=== PATIENT | female | born 1970 | race Caucasian/White ===

== ENCOUNTER 2016-12-03 10:42 | Inpatient (IN) | payer OTHER ==
[~2016-12-03] VITALS: Ht 170.2 cm; Wt 92.3 kg
[~2016-12-03 10:42] MED LIST: PENI250T91 PO
[2016-12-03] MEDS ORDERED: SODIUM CHLORIDE 0.9% 1,000 ML IV ONE (10:49)
[2016-12-03] MEDS ORDERED: ONDANSETRON 2MG/ML, 2ML IVPush ONE (11:00)
[2016-12-03] MEDS ORDERED: FAMOTIDINE 20 MG/2 ML IVP ONE (11:00)
[2016-12-03] MEDS ORDERED: SODIUM CHLORIDE FLUSH 10ML SYR IVF ONE (11:00)
[2016-12-03] MEDS ORDERED: MAALOX/HYOSCYAMINE/LIDOCAINE 45 ML BTL PO ONE (11:00)
[2016-12-03] MEDS ORDERED: SODIUM CHLORIDE 0.9% 1,000ML IVBOLUS ONE (11:00)
[2016-12-03] MEDS ORDERED: MAALOX/HYOSCYAMINE/LIDOCAINE 45 ML BTL ONE (11:07)
[2016-12-03] MEDS ORDERED: ONDANSETRON 2MG/ML, 2ML ONE (11:07)
[2016-12-03] MEDS ORDERED: FAMOTIDINE 20 MG/2 ML ONE (11:09)
[2016-12-03 11:24] LABS: HEMATOCRIT 39.5 % (34.6-47.8); HEMOGLOBIN 12.4 g/dL (11.7-16.4); WHITE BLOOD COUNT 20.2 x10^3/uL (3.4-10)
[2016-12-03 11:35] LABS: ASPARTATE AMINO TRANSFERASE 30 U/L (15-37); BLOOD UREA NITROGEN 8 mg/dL (7-18)
[2016-12-03 11:47] LABS: DIFF TOTAL CELLS COUNTED 100 CELL DIFF
[2016-12-03 11:49] LABS: VERIFY COUNTS? YES
[2016-12-03 11:50] LABS: HYPOCHROMIA 1+; MICROCYTOSIS 1+; OVALOCYTES 1+
[2016-12-03] MEDS ORDERED: OMEP-110 PO (12:15)
[2016-12-03] MEDS ORDERED: LEVOFLOXACIN/PMX 750MG/150ML 0 ML ONE (12:17)
[2016-12-03] MEDS ORDERED: LEVOFLOXACIN/PMX 500MG/100ML 100 ML ONE (12:20)
[2016-12-03] MEDS ORDERED: LEVOFLOXACIN/PMX 500MG/100ML 100 ML IVPB ONE (12:30)
[2016-12-03 12:46] LABS: CARE PROVIDER REQUESTING TEST N
[2016-12-03] MEDS ORDERED: MAALOX/HYOSCYAMINE/LIDOCAINE 45 ML BTL PO PRN (17:00)
[2016-12-03] MEDS ORDERED: DOCUSATE 100 MG CAPSULE PO PRN (17:00)
[2016-12-03] MEDS ORDERED: HYDROcodone/APAP 5/325 TABLET PO PRN (17:00)
[2016-12-03] MEDS ORDERED: POLYETHYLENE GLYCOL 17 GM PACKET PO PRN (17:00)
[2016-12-03] MEDS ORDERED: LABETALOL 5MG/ML, 20ML IVPush PRN (17:00)
[2016-12-03] MEDS ORDERED: ENALAPRILAT 1.25 MG/ML, 2ML IVPush PRN (17:00)
[2016-12-03] MEDS ORDERED: morphine SULFATE 10 MG/ML, 1ML IVPush PRN (17:00)
[2016-12-03] MEDS ORDERED: BISACODYL 10 MG SUPP PR PRN (17:00)
[2016-12-03] MEDS ORDERED: OMNIPAQUE 350 MG/ML, 100ML BOTTLE ONE (17:55)
[2016-12-03] MEDS: SODIUM CHLORIDE 0.9% 1,000 ML IV SCH (18:20)
[2016-12-03] MEDS: METRONIDAZOLE PMX 500MG/100ML 100 ML IV SCH (18:20)
[2016-12-03 18:51] VITALS: BP 107/72
[2016-12-03] MEDS: CEFTRIAXONE PMX 1GM/50ML 50 ML IV SCH (20:22)
[2016-12-03] MEDS: SUCRALFATE 1 GM/10 ML UDC PO SCH (20:22)
[2016-12-03] MEDS: FAMOTIDINE 20 MG/2 ML IVPush SCH (20:22)
[2016-12-03] MEDS: ENOXAPARIN 40 MG/0.4 ML SQ SCH (20:22)
[2016-12-03] MEDS ORDERED: DIPHENHYDRAMINE 25 MG CAPSULE PO PRN (22:30)
[2016-12-03] MEDS: ONDANSETRON 2MG/ML, 2ML IVPush PRN (23:25)
[2016-12-03] MEDS: HYDROcodone/APAP 5/325 TABLET PO PRN (23:25)
[2016-12-04 01:29] VITALS: BP 100/66
[2016-12-04] MEDS: SODIUM CHLORIDE 0.9% 1,000 ML IV SCH ×3 (02:04→19:58)
[2016-12-04] MEDS: SUCRALFATE 1 GM/10 ML UDC PO SCH ×4 (02:04→19:57)
[2016-12-04] MEDS: METRONIDAZOLE PMX 500MG/100ML 100 ML IV SCH ×2 (02:05→10:28)
[2016-12-04] MEDS: ONDANSETRON 2MG/ML, 2ML IVPush PRN (05:27)
[2016-12-04] MEDS: ACETAMINOPHEN 325 MG TABLET PO PRN (05:27)
[2016-12-04 06:03] LABS: BLOOD UREA NITROGEN 5 mg/dL (7-18)
[2016-12-04 06:06] LABS: ASPARTATE AMINO TRANSFERASE 11 U/L (15-37)
[2016-12-04 06:08] LABS: HEMATOCRIT 32.2 % (34.6-47.8); HEMOGLOBIN 10.3 g/dL (11.7-16.4); WHITE BLOOD COUNT 10.4 x10^3/uL (3.4-10)
[2016-12-04] MEDS ORDERED: PROMETHAZINE 25 MG/ML, 1ML IM PRN (07:30)
[2016-12-04 07:40] VITALS: BP 118/77
[2016-12-04] MEDS ORDERED: LORazepam 2 MG/ML, 1ML IVPush PRN (09:00)
[2016-12-04] MEDS: FAMOTIDINE 20 MG/2 ML IVPush SCH ×2 (10:28→19:58)
[2016-12-04] MEDS: HYDROcodone/APAP 5/325 TABLET PO PRN (10:28)
[2016-12-04] MEDS ORDERED: LOPERAMIDE 2 MG CAPSULE PO PRN (11:00)
[2016-12-04] MEDS ORDERED: AZITHROMYCIN 500 MG TABLET PO ONE (11:00)
[2016-12-04 15:27] VITALS: BP 96/60
[2016-12-04 18:39] VITALS: BP 114/74
[2016-12-04] MEDS: ENOXAPARIN 40 MG/0.4 ML SQ SCH (19:57)
[2016-12-04] MEDS: CEFTRIAXONE PMX 1GM/50ML 50 ML IV SCH (19:58)
[2016-12-05 01:39] VITALS: BP 103/66
[2016-12-05] MEDS: SUCRALFATE 1 GM/10 ML UDC PO SCH ×3 (02:00→14:00)
[2016-12-05] MEDS: SODIUM CHLORIDE 0.9% 1,000 ML IV SCH (04:44)
[2016-12-05 06:08] LABS: HEMOGLOBIN 9.5 g/dL (11.7-16.4); WHITE BLOOD COUNT 9.4 x10^3/uL (3.4-10)
[2016-12-05 06:33] LABS: ASPARTATE AMINO TRANSFERASE 15 U/L (15-37); BLOOD UREA NITROGEN 2 mg/dL (7-18)
[2016-12-05 07:13] VITALS: BP 106/66
[2016-12-05] MEDS: FAMOTIDINE 20 MG/2 ML IVPush SCH (09:04)
[2016-12-05] MEDS: ACETAMINOPHEN 325 MG TABLET PO PRN (10:51)
== END 2016-12-05 16:20 | disposition home or self-care (01) | DRG 872 ==
LOC: ED 12:03 → EDIP 16:01 → 3NE 17:01
PROVIDERS: ADMIT Family Medicine; ATTEND Family Medicine
DX: A41.9 Sepsis, unspecified organism (principal); N10 Acute pyelonephritis; F32.9 Major depressive disorder, single episode, unspecified; G43.909 Migraine, unspecified, not intractable, without status migrainosus; G89.29 Other chronic pain; K21.9 Gastro-esophageal reflux disease without esophagitis; K29.70 Gastritis, unspecified, without bleeding; K52.9 Noninfective gastroenteritis and colitis, unspecified; K56.41 Fecal impaction; Z80.0 Family history of malignant neoplasm of digestive organs; Z83.3 Family history of diabetes mellitus; Z87.891 Personal history of nicotine dependence
CPT/HCPCS: 36415; 74020; 74177; 80053; 81001; 83605; 83690; 84703; 85025; 87040; 87086; 87324; 87338; 89055; 93005; 96361; 96365; 96375; J0696; J1650; J1956; J2405; J2550; Q9967; J7030; Q0163; S0028

== ENCOUNTER 2017-03-02 08:55 | Emergency (ER) | payer MEDICAID, OTHER ==
[~2017-03-02] VITALS: Ht 170.2 cm; Wt 89.0 kg
[~2017-03-02 08:55] MED LIST changes: +OMEP-110 PO
[2017-03-02] MEDS ORDERED: IBUPROFEN 200 MG TABLET ONE (09:20)
[2017-03-02] MEDS ORDERED: ONDANSETRON ODT 4 MG ONE (09:23)
[2017-03-02] MEDS ORDERED: ONDANSETRON ODT 4 MG PO ONE (09:30)
[2017-03-02] MEDS ORDERED: IBUPROFEN 800 MG TABLET PO SCH (09:30)
[2017-03-02 09:48] VITALS: BP 120/70
[2017-03-02 09:50] LABS: RAPID INFLUENZA A Negative (Negative); RAPID INFLUENZA B Negative (Negative)
[2017-03-02] MEDS ORDERED: PROMETHAZINE 25 MG/ML, 1ML ONE (10:02)
[2017-03-02] MEDS ORDERED: PROMETHAZINE 25 MG/ML, 1ML IM ONE (10:30)
== END 2017-03-02 10:17 | disposition home or self-care (01) ==
LOC: ED 10:00
DX: J20.9 Acute bronchitis, unspecified (principal); K21.9 Gastro-esophageal reflux disease without esophagitis; G43.909 Migraine, unspecified, not intractable, without status migrainosus
CPT/HCPCS: 71020; 87081; 87400; 87880; 96372; 99285; J2550; Q0162

== ENCOUNTER 2017-10-05 18:44 | Emergency (ER) | payer MEDICAID, OTHER ==
[~2017-10-05] VITALS: Ht 170.2 cm; Wt 85.6 kg
[2017-10-05] MEDS ORDERED: SODIUM CHLORIDE 0.9% 1,000ML IVBOLUS ONE (19:00)
[2017-10-05] MEDS ORDERED: PROMETHAZINE 25 MG/ML, 1ML IM ONE (19:00)
[2017-10-05] MEDS ORDERED: PROMETHAZINE 25 MG/ML, 1ML ONE (19:03)
[2017-10-05 19:13] LABS: BASOPHILS % (AUTO) 1 % (0-1); EOSINOPHILS # (AUTO) 0.03 x10^3/uL (0-0.4); EOSINOPHILS % (AUTO) 0 % (1-7); LYMPHOCYTES # (AUTO) 1.48 x10^3/uL (1-3.4); LYMPHOCYTES % (AUTO) 10 % (22-44); MD NO; MEAN CORPUSCULAR HEMOGLOBIN 24.7 pg (27.0-34.8); MEAN CORPUSCULAR HGB CONC 31.9 g/dL (32.4-35.8); MEAN CORPUSCULAR VOLUME 77.5 fL (80-100); MEAN PLATELET VOLUME 10.5 fL (7.4-10.4); MONOCYTES % (AUTO) 3 % (2-9); NEUTROPHILS # (AUTO) 12.94 x10^3/uL (1.8-6.8); NEUTROPHILS % (AUTO) 86 % (42-75); PLATELET COUNT 321 x10^3/uL (130-400); RED BLOOD COUNT 4.83 x10^6/uL (3.82-5.3); RED CELL DISTRIBUTION WIDTH 16.9 % (9.6-15.2)
[2017-10-05 19:20] LABS: ALANINE AMINOTRANSFERASE 24 U/L (12-78); ALBUMIN 4.1 g/dL (3.4-5.0); ANION GAP 12 mmol/L (5-15); CALCIUM 9.1 mg/dL (8.5-10.1); CHLORIDE 103 mmol/L (98-107); CREATININE 0.88 mg/dL (0.55-1.02)
[2017-10-05 19:25] LABS: ALKALINE PHOSPHATASE 85 U/L (45-117); BILIRUBIN,TOTAL 0.4 mg/dL (0.2-1.0); TOTAL PROTEIN 8.1 g/dL (6.4-8.2)
[2017-10-05] MEDS ORDERED: ONDANSETRON ODT 4 MG ONE (20:20)
[2017-10-05] MEDS ORDERED: ONDANSETRON ODT 4 MG PO ONE (20:30)
[2017-10-05 21:17] LABS: MICROSCOPIC INDICATED
[2017-10-05 21:26] LABS: CULTURE INDICATED? NO
[2017-10-05] MEDS ORDERED: METOCLOPRAMIDE 5 MG/ML, 2ML ONE (21:37)
[2017-10-05] MEDS ORDERED: METOCLOPRAMIDE 5 MG/ML, 2ML IVPush ONE (22:00)
[2017-10-05 22:38] VITALS: BP 131/77
== END 2017-10-05 22:49 | disposition home or self-care (01) ==
LOC: ED 21:29
DX: R11.2 Nausea with vomiting, unspecified (principal); G43.909 Migraine, unspecified, not intractable, without status migrainosus; K21.9 Gastro-esophageal reflux disease without esophagitis; Z87.891 Personal history of nicotine dependence
CPT/HCPCS: 36415; 80053; 81001; 83690; 84703; 85025; 96361; 96372; 96374; 99285; J2550; J2765; J7030; Q0162

== ENCOUNTER 2018-11-08 22:26 | Emergency (ER) | payer OTHER ==
[~2018-11-08] VITALS: Ht 170.2 cm; Wt 82.8 kg
[2018-11-08 22:29] VITALS: BP 125/80
== END 2018-11-09 00:06 | disposition home or self-care (01) ==
LOC: ED 23:40
DX: G89.11 Acute pain due to trauma (principal); R07.89 Other chest pain; Z87.891 Personal history of nicotine dependence; Z98.890 Other specified postprocedural states; V49.49XA Driver injured in collision with other motor vehicles in traffic accident, initial encounter; Y93.89 Activity, other specified; Y92.89 Other specified places as the place of occurrence of the external cause; Y99.8 Other external cause status
CPT/HCPCS: 99283

== ENCOUNTER 2020-09-23 18:27 | Emergency (ER) | payer MEDICAID ==
[~2020-09-23] VITALS: Ht 170.2 cm; Wt 88.5 kg
[2020-09-23 18:38] VITALS: BP 140/95
--- NOTE | 2020-09-23 21:24 | NUR ---
PT PRESENTS TO THE ER FOR LEFT ELBOW AND LEFT RIB CAGE PAIN, PT STATES SHE WAS WALKING IN THE MALL AND STEPPED ON HER DAUGHTERS FOOT AND THEN FELL SIDEWAYS ONTO HER LEFT ELBOW, PT STATES THE PAIN IS CURRENTLY 09/19, PT A/OX4, NAD AT THIS TIME
--- NOTE | 2020-09-23 21:49 | NUR ---
PT LAYING IN BED, A/OX4, ALL NEEDS IN REACH, CALL LIGHT IN REACH, NAD AT THIS TIME
--- NOTE | 2020-09-23 22:05 | NUR ---
PT LAYING IN BED, A/OX4, AT BEDSIDE, MD AT BEDSIDE TO DISCUSS POC
[2020-09-23] MEDS ORDERED: IBUPROFEN 600 MG TABLET ONE (22:16)
[2020-09-23] MEDS ORDERED: ONDANSETRON ODT 4 MG ONE (22:16)
[2020-09-23] MEDS ORDERED: OXYcodone/APAP 5/325MG TABLET ONE (22:17)
[2020-09-23] MEDS ORDERED: OXYcodone/APAP 5/325MG TABLET PO ONE (22:30)
[2020-09-23] MEDS ORDERED: IBUPROFEN 600 MG TABLET PO ONE (22:30)
[2020-09-23] MEDS ORDERED: ONDANSETRON ODT 4 MG PO ONE (22:30)
--- NOTE | 2020-09-23 23:00 | NUR ---
DIALYSIS CLINICAL MANAGER APPLIED SPLINT AND SLING, PT TOLERATED IT WELL, PT GIVEN INCENTIVE SPIROMETER PER MD ORDER, NAD, PT DISCHARGED WITH SCRIPTS FOR MEDICATIONS
== END 2020-09-23 23:02 ==
LOC: ED 21:21
DX: S22.32XA Fracture of one rib, left side, initial encounter for closed fracture (principal); S52.092A Other fracture of upper end of left ulna, initial encounter for closed fracture; R07.89 Other chest pain; K21.9 Gastro-esophageal reflux disease without esophagitis; G43.909 Migraine, unspecified, not intractable, without status migrainosus; Z87.891 Personal history of nicotine dependence; W01.0XXA Fall on same level from slipping, tripping and stumbling without subsequent striking against object, initial encounter; Y93.89 Activity, other specified; Y92.59 Other trade areas as the place of occurrence of the external cause; Y99.8 Other external cause status
CPT/HCPCS: 29105; 71101; 73080; 99284; Q0162